=== PATIENT | male | born 1970 | race Caucasian/White ===

== ENCOUNTER 2017-10-10 11:59 | Emergency (ER) | payer MEDICAID, OTHER ==
[2017-10-10] MEDS: IBUPROFEN 600 MG TAB PO (14:53)
[2017-10-10] MEDS: LIDOCAINE 1% (MDV) 20 ML INJ SC (15:25)
== END 2017-10-10 16:52 | disposition home or self-care (01) ==
LOC: FTE 16:52
DX: S63.287A Dislocation of proximal interphalangeal joint of left little finger, initial encounter (principal); W18.39XA Other fall on same level, initial encounter; Y92.9 Unspecified place or not applicable
CPT/HCPCS: 26770; 73140; 99284-25